=== PATIENT | male | born 1980 | race Caucasian/White ===

== ENCOUNTER 2022-12-04 12:07 | Emergency (ER) | payer OTHER, SELFPAY ==
[2022-12-04 12:33] VITALS: BP 145/83; PULSE 81; RESP 16; TEMP 36.7; O2SAT 96; BMI 30.9
[2022-12-04 14:02] LABS: Basophils Absolute Auto 0.02 K/uL (0.00-0.30); Basophils Percent Auto 0.3 % (0.0-3.0); Eosinophils Absolute Auto 0.15 K/uL (0.00-0.50); Eosinophils Percent Auto 2.3 % (0.0-7.0); Hemoglobin* 16.7 gm/dL (13.5-17.5); Immature Granulocytes Abs Auto 0.02 K/uL (0.00-0.30); Immature Granulocytes Pct Auto 0.3 %; Lymphocytes Percent Auto 38.3 % (20-44); Mean Corpuscular HGB Conc 36 gm/dL (32-36); Mean Corpuscular Hemoglobin 31 pg (26-34); Mean Corpuscular Volume 88 fL (80-100); Monocytes Percent Auto 7.2 % (0.0-11.0); Neutrophils Absolute Auto 3.36 K/uL (1.7-7.0); Neutrophils Percent Auto 51.6 % (42.0-72.0); Platelet Count* 191 K/uL (140-440); RDW Coefficient of Variation % 12.7 % (11.5-15.5); Red Blood Count 5.36 m/uL (4.30-5.90); White Blood Count* 6.52 K/uL (4.50-11.00)
[2022-12-04 14:07] LABS: Chloride* 105 mmol/L (96-114); Sodium* 140 mmol/L (135-149)
[2022-12-04 14:08] LABS: Potassium* 3.5 mmol/L (3.6-5.1)
[2022-12-04 14:10] LABS: Creatinine* 0.7 mg/dL (0.5-1.5); Est. Creatinine Clearance* 112.76; Estimated Glomerular Filt Rate 117 ml/min; Slide Review Reflex No
[2022-12-04 14:11] LABS: Blood Urea Nitrogen* 12 mg/dL (5-24); Calcium* 9.1 mg/dL (8.4-10.6); Carbon Dioxide* 27 mmol/L (20-32); Glucose* 133 mg/dL (60-115)
[2022-12-04 14:16] LABS: C Reactive Protein* < 0.5 mg/dL (0.5-1.0)
[2022-12-04 14:18] LABS: D Dimer Quantitative* < 0.27 ug/ml (0.00-0.50)
--- NOTE | 2022-12-04 14:31 | CRLHL7_ITS ---
For Patients: As a result of the Century Cures Act, medical imaging exams and procedure reports are released immediately into your electronic medical record. You may view this report before your referring provider. If you have questions, please contact your health care provider. INDICATION: Intermittent abdominal pain for 1 year. Deep subcostal pain, BB marker at area of pain. TECHNIQUE: CT abdomen without contrast. COMPARISON: None available. FINDINGS: Lower chest: No focal consolidation. 0.3 cm pulmonary nodules in the lingula. Evaluation of solid organs is limited secondary to lack of IV contrast administration. Liver: Mild diffuse hepatic steatosis. Gallbladder and bile ducts: Unremarkable. Pancreas: Unremarkable. Spleen: Unremarkable. Splenule is noted. Adrenal glands: Unremarkable. Kidneys: No renal calculi or hydronephrosis bilaterally. Retroperitoneum: No lymphadenopathy. Bowel and mesentery: Visualized bowel is nondilated. Normal appendix. No significant ascites, no pneumoperitoneum. Vessels: Few scattered atherosclerotic calcifications. Abdominal wall: No acute abdominal wall abnormality. Metallic BB is present on personal secretary images projecting over the left mid abdomen, however is not present on CT. Bones: Multilevel degenerative changes of the spine. No suspicious/aggressive focal osseous lesion. IMPRESSION: 1. No acute intra-abdominal abnormality identified. 2. Mild diffuse hepatic steatosis. 3. Incidentally noted 0.3 cm pulmonary nodules in the lingula. Consider optional follow up CT chest in 12 months, per Fleischner guidelines. Please note that all CT scans at this facility use dose modulation, iterative reconstruction, and/or weight-based dosing when appropriate to reduce radiation dose to as low as reasonably achievable. Dictated by Nisreen Moreno MD @ 12/04/2022 4:39:54 PM (Electronically Signed)
--- NOTE | 2022-12-05 05:04 | ED_ITS ---
HPI - Abdominal Pain General Chief Complaint: Abdominal Pain Stated Complaint: LT side - burning pain Time Seen by Provider: 12/04/22 12:18 History of Present Illness HPI narrative: 42-year-old man accompanied by his daughter with concern of intermittent left- sided abdominal pain over the last year. It is now been present though about a week persistently. No fevers. No rash. No trauma. Denies constipation. No dysuria frequency urgency. No hematuria. Somewhat sharp in quality deep to the left anterior rib margin in the abdomen and not pleuritic. Apparently has been evaluated for this in the past and told he needs to lose weight; that he has fatty liver. Denies GERD symptoms. Remote brief smoking history around the age of 16. Has not tried any particular treatment. Has lost confidence somewhat in medical care as has not been getting any answers. I question further and it appears that he has developed some concerns that cancer might be present. He just wants to know at this point that nothing is majorly wrong. Related Data Home Medications Medication Instructions Recorded Confirmed cetirizine 10 mg tablet (24Hour 10 mg PO DAILY PRN 12/04/22 12/04/22 Allergy) Allergies Allergy/AdvReac Type Severity Reaction Status Date / Time No Known Drug Allergies Allergy Verified 12/04/22 12:31 Review of Systems Status of ROS Reports: 10 or more systems reviewed and unremarkable except as noted in History and below [facility] Social History Smoking Status: Never smoker Do you use any of these nicotine containing products: None Second hand tobacco smoke exposure: No How often do you have a drink containing alcohol: never AUDIT-C Alcohol total score: 0 Non-prescribed substance use: denies use service: No Exam Narrative: Exam Narrative: Pleasant. NAD. Lying little sprawled across the bed. Cranial nerves 2-12 intact. Breathing easily. There is no supraclavicular crepitus. Lungs are clear with equal expansion excursion. Heart in a regular rate and rhythm. No murmur rub or gallop identified. Abdomen with normoactive bowel sounds is soft and not tender. Overweight. No masses appreciated. No skin lesions. No rash. I might be able to reproduce his discomfort with deep palpation to the left rib margin. Thought initially somewhat uncomfortable to palpation of the rib margin but this is not exactly where the discomfort is felt. No flank tenderness. no back tenderness palpation. Extremities are without edema. Well perfused. Const: Vital Signs, click to edit/add: Vital Signs - 24 hr 12/04/22 12:33 Temperature 98.0 F Pulse Rate [Pulse Oximeter] 81 Respiratory Rate 16 Blood Pressure [Ri ght Upper Arm] 145/83 H Pulse Oximetry 96 Documenting provider has reviewed patient's vital signs: yes Course Vital Signs Vital signs: Initial Vital Signs Temperature 98.0 F 12/04/22 12:33 Temperature Source Temporal Artery Scan 12/04/22 12:33 Pulse Rate 81 12/04/22 12:33 Pulse Rhythm 12/04/22 12:33 Pulse Strength 3+ Normal 12/04/22 12:33 Respiratory Rate 16 12/04/22 12:33 Blood Pressure 145/83 H 12/04/22 12:33 Blood Pressure Mean 103 12/04/22 12:33 Blood Pressure Position Sitting 12/04/22 12:33 Pulse Oximetry 96 12/04/22 12:33 Vital Signs Temperature 98.0 F 12/04/22 12:33 Pulse Rate 81 12/04/22 12:33 Respiratory Rate 16 12/04/22 12:33 Blood Pressure 145/83 H 12/04/22 12:33 Pulse Oximetry 96 12/04/22 12:33 Temperature 98.0 F 12/04/22 12:33 Pulse Rate 81 12/04/22 12:33 Respiratory Rate 16 12/04/22 12:33 Blood Pressure 145/83 H 12/04/22 12:33 Pulse Oximetry 96 12/04/22 12:33 MDM - Abdominal Pain MDM Narrative Medical decision making narrative: I discussed that I doubt I will be able to give him a certain diagnosis, this has apparently frustrated him in the past. But that we could at least give a good indication of what it is not and possibly allay some fears. He would like to proceed with laboratory analysis and more extensive imaging. Differential does include splenic colonic flexure pain/constipation, splenic lesion, pulmonary embolus or low-lying pulmonary disease, renal issue/mass, radicular discomfort from the back Labs reassuring. Normal D-dimer Non contrasted CT imaging of the abdomen --I did review these images and with Radiology over-read then below. CT abdomen without contrast. COMPARISON: None available. FINDINGS: Lower chest: No focal consolidation. 0.3 cm pulmonary nodules in the lingula. Evaluation of solid organs is limited secondary to lack of IV contrast administration. Liver: Mild diffuse hepatic steatosis. Gallbladder and bile ducts: Unremarkable. Pancreas: Unremarkable. Spleen: Unremarkable. Splenule is noted. Adrenal glands: Unremarkable. Kidneys: No renal calculi or hydronephrosis bilaterally. Retroperitoneum: No lymphadenopathy. Bowel and mesentery: Visualized bowel is nondilated. Normal appendix. No significant ascites, no pneumoperitoneum. Vessels: Few scattered atherosclerotic calcifications. Abdominal wall: No acute abdominal wall abnormality. Metallic BB is present on wire hanger images projecting over the left mid abdomen, however is not present on CT. Bones: Multilevel degenerative changes of the spine. No suspicious/aggressive focal osseous lesion. IMPRESSION: 1. No acute intra-abdominal abnormality identified. 2. Mild diffuse hepatic steatosis. 3. Incidentally noted 0.3 cm pulmonary nodules in the lingula. Consider optional follow up CT chest in 12 months, per Fleischner guidelines. We discussed [id number] options for treatment/care. Findings of images were discussed with Mr. Coates. See patient discharge plan Lab Data Attestation: I reviewed the patient's lab results. Labs: Lab Results 12/04/22 12/04/22 12/04/22 Range/Units 13:40 13:40 13:40 WBC 6.52 (4.50-11.00) K/uL RBC 5.36 (4.30-5.90) m/uL Hgb 16.7 (13.5-17.5) gm/dL Hct 47.0 (37.0-53.0) % MCV 88 (80-100) fL MCH 31 (26-34) pg MCHC 36 (32-36) gm/dL RDW Coeff of Tereso 12.7 (11.5-15.5) % Plt Count 191 (140-440) K/uL Neut % (Auto) 51.6 (42.0-72.0) % Lymph % (Auto) 38.3 (20-44) % [place] % (Auto) 7.2 (0.0-11.0) % Eos % (Auto) 2.3 (0.0-7.0) % Baso % (Auto) 0.3 (0.0-3.0) % Neut # (Auto) 3.36 (1.7-7.0) K/uL Lymph # (Auto) 2.50 (0.90-2.90) K/uL [place] # (Auto) 0.50 (0.00-0.90) K/UL Eos # (Auto) 0.15 (0.00-0.50) K/uL Baso # (Auto) 0.02 (0.00-0.30) K/uL D-Dimer Quant (PE/DVT) < 0.27 (0.00-0.50) ug/ml Sodium 140 (135-149) mmol/L Potassium 3.5 L (3.6-5.1) mmol/L Chloride 105 (96-114) mmol/L Carbon Dioxide 27 (20-32) mmol/L BUN 12 (5-24) mg/dL Creatinine 0.7 (0.5-1.5) mg/dL Estimated Creat Clear 112.76 Estimated GFR 117 ml/min Glucose 133 H (60-115) mg/dL Calcium 9.1 (8.4-10.6) mg/dL C-Reactive Protein < 0.5 L (0.5-1.0) mg/dL Discharge Plan Discharge Clinical Impression: Abdominal pain, left upper quadrant, Pulmonary nodule Patient Disposition: Home w/ Parent or Adult Condition: Stable Additional Instructions: Regularly and with a little food over the next couple of weeks consider taking 600 mg of ibuprofen 2-3 times daily or 375 mg of naproxen sodium twice daily. You might try placement of lidocaine patches over the area that seems to be hurting. Can also buy these [id number]. There are other menthol or capsaicin based creams that might also be helpful. These pulmonary nodules are incidental findings. You are rather low risk but might consider reimaging in around 12 months to see whether or not they look the same. Discuss with your primary care provider. Stay well-hydrated drinking 2-3 L of water daily. Most of us also need to increase our dietary fiber intake. Regular daily exercise also helps with gut motility and possibly abdominal discomfort. Regularmente y con un poco de comida nolvia las pr?ximas dos semanas, considere oliva 600 mg de ibuprofeno 2-3 veces al d?a o 375 mg de naproxeno s?dico dos veces al d?a. Puede intentar colocar parches de lidoca?na sobre el ?roosevelt que parece estar sufriendo. Tambi?n puede comprar estos sin receta. Hay otras cremas a base de mentol o capsaicina que tambi?n podr?an ser ?tiles. Estos n?dulos pulmonares son hallazgos incidentales. Usted tiene un riesgo bastante bajo, summer podr?a considerar volver a crear im?genes en alrededor de 12 meses para neris si se litzy iguales o no. Hable con nieto proveedor de atenci?n primaria. Mant?ngase damon hidratado bebiendo 2-3 L de agua al d?a. La mayor?a de nosotros tambi?n necesitamos aumentar nuestra ingesta de fibra diet?erik. El ejercicio diario regular tambi?n ayuda con la motilidad intestinal y posiblemente el malestar abdominal. Prescriptions: No Action cetirizine [24Hour Allergy] 10 mg tablet 10 mg PO DAILY PRN Follow Up/Referrals: Provider,Not a Local [Primary Care Provider] - Stand Alone Forms: MyHealth Info Instructions
== END 2022-12-04 17:26 | disposition home or self-care (01) ==
PROVIDERS: Emergency Provider Family Medicine
DX: R10.12 Left upper quadrant pain (principal); R91.1 Solitary pulmonary nodule
CPT/HCPCS: 36415; 74150; 80048; 85025; 85379; 86140; 99284

== ENCOUNTER 2023-04-27 21:25 | Outpatient (CLI) | payer OTHER, SELFPAY | END 2023-04-27 21:26 | disposition home or self-care (01) | LOC: AMB 05-04 15:24 | PROVIDERS: Visit Provider Internal Medicine | DX: S19.9XXA Unspecified injury of neck, initial encounter (principal); S39.92XA Unspecified injury of lower back, initial encounter; V43.52XA Car driver injured in collision with other type car in traffic accident, initial encounter; Y92.414 Local residential or business street as the place of occurrence of the external cause | CPT/HCPCS: A0425 ==

== ENCOUNTER 2023-04-27 21:59 | Emergency (ER) | payer OTHER, SELFPAY ==
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
--- NOTE | 2023-04-27 22:24 | CRLHL7_ITS ---
For Patients: As a result of the Century Cures Act, medical imaging exams and procedure reports are released immediately into your electronic medical record. You may view this report before your referring provider. If you have questions, please contact your health care provider. Indication: Injury Technique: A total of three views of the left elbow were acquired. Comparison: None Findings: Bones: No definite fracture. This study is significantly limited in that a true lateral elbow view was not obtained. Consider repeating a lateral view if there is strong index of concern for fracture. Joint spaces: No dislocation. Cannot exclude a joint effusion without a true lateral view. Soft tissues: Unremarkable. Impression: Limited study without obvious acute fracture. No dislocation. Please review the comment. Dictated by Ivan Duenas MD @ 04/28/2023 8:30:42 AM (Electronically Signed)
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
[2023-04-27 22:54] LABS: Basophils Absolute Auto 0.02 K/uL (0.00-0.30); Basophils Percent Auto 0.3 % (0.0-3.0); Eosinophils Absolute Auto 0.14 K/uL (0.00-0.50); Eosinophils Percent Auto 2.4 % (0.0-7.0); Hematocrit 43.8 % (37.0-53.0); Hemoglobin* 15.5 gm/dL (13.5-17.5); Immature Granulocytes Abs Auto 0.02 K/uL (0.00-0.30); Immature Granulocytes Pct Auto 0.3 %; Lymphocytes Absolute Auto 1.51 K/uL (0.90-2.90); Lymphocytes Percent Auto 26.2 % (20-44); Mean Corpuscular HGB Conc 35 gm/dL (32-36); Mean Corpuscular Hemoglobin 31 pg (26-34); Mean Corpuscular Volume 88 fL (80-100); Monocytes Percent Auto 9.2 % (0.0-11.0); Neutrophils Absolute Auto 3.55 K/uL (1.7-7.0); Neutrophils Percent Auto 61.6 % (42.0-72.0); Platelet Count* 178 K/uL (140-440); RDW Coefficient of Variation % 12.8 % (11.5-15.5); Red Blood Count 4.99 m/uL (4.30-5.90); White Blood Count* 5.77 K/uL (4.50-11.00)
[2023-04-27 22:56] LABS: Slide Review Reflex No
[2023-04-27 23:07] LABS: Albumin* 4.2 g/dL (3.3-5.0); Chloride* 105 mmol/L (96-114); Potassium* 3.4 mmol/L (3.6-5.1); Sodium* 138 mmol/L (135-149)
[2023-04-27 23:10] LABS: Alanine Aminotransferase* 145 U/L (4-50); Alkaline Phosphatase* 72 U/L (40-150); Aspartate Amino Transferase* 83 U/L (12-35); Bilirubin Total* 1.7 mg/dL (0.1-1.5); Blood Urea Nitrogen* 21 mg/dL (5-24); Calcium* 8.6 mg/dL (8.4-10.6); Carbon Dioxide* 26 mmol/L (20-32); Creatinine* 0.9 mg/dL (0.5-1.5); Estimated Glomerular Filt Rate 108 ml/min; Glucose* 120 mg/dL (60-115); Total Protein* 7.4 g/dL (6.0-8.3)
[2023-04-27 23:12] VITALS: BP 132/78; PULSE 89; RESP 18; TEMP 36.7; O2SAT 99; BMI 35.9
[2023-04-27 23:29] VITALS: O2SAT 98
[2023-04-27 23:42] VITALS: BP 143/90; PULSE 85; RESP 16; O2SAT 98
[2023-04-27 23:50] VITALS: BP 129/75; PULSE 85; RESP 16; TEMP 37; O2SAT 98
[2023-04-28] VITALS: BP 151/83; PULSE 78; RESP 16; TEMP 36.4; O2SAT 98
[2023-04-28 01:38] VITALS: BP 124/74; PULSE 78; RESP 16; TEMP 36.7; O2SAT 98
[2023-04-28 01:51] VITALS: BP 124/74; PULSE 78; RESP 16; TEMP 36.7
== END 2023-04-28 00:30 | disposition home or self-care (01) ==
LOC: ED 04-28 00:27
PROVIDERS: Emergency Provider Internal Medicine
DX: M25.522 Pain in left elbow (principal); R94.5 Abnormal results of liver function studies; V43.52XA Car driver injured in collision with other type car in traffic accident, initial encounter
CPT/HCPCS: 36415; 70450; 71250; 72125; 73080; 74176; 80053; 81003; 85025; 94761; 99283; 99284; 99291; G0390

== ENCOUNTER 2023-05-02 15:08 | Outpatient (CLI) | payer OTHER, SELFPAY | END 2023-05-02 15:09 | disposition home or self-care (01) | LOC: NFLDREF 15:09 | PROVIDERS: Visit Provider Internal Medicine | DX: R79.89 Other specified abnormal findings of blood chemistry (principal) | CPT/HCPCS: 80053 ==